=== PATIENT | female | born 1975 | race Caucasian/White ===

== ENCOUNTER 2017-11-25 13:28 | Emergency (ER) | payer MEDICAID, OTHER ==
--- NOTE | 2017-11-25 13:53 | EDPHY ---
H & P Stated Complaint: r foot pain Time Seen by Provider: 11/25/17 13:38 HPI/ROS: Chief Complaint: Foot pain HPI: 32-year-old woman woke this morning with pain in the right midfoot. It hurts to stand or walk. Denies any trauma. Patient states she had similar pain yesterday in her middle toe but this went away. Has not taken any medications. She has been standing and working as every still day. No redness. No fevers or chills. No leg pain or swelling. No cough. ROS: 10 systems were reviewed and were negative except those elements noted in the HPI. PMH: Bipolar disorder Social History: No smoking, no alcohol, no recreational drug use Family History: non-contributory Physical Exam: General: Awake, alert, no acute distress Right foot: Patient has some mild tenderness in the right mid foot on the plantar region. No calcaneal tenderness. No distal metatarsal tenderness. It is not swollen. Is not warm to the touch. Is not red. There is no tenderness no dorsal aspect. There is no deformity. Capillary refills less than 2 sec. She has 2+ DP and PT pulses. Ankle is nontender with full range of motion without pain. Skin: No rash - Personal History LMP (Females 10-55): 1-7 Days Ago Current Tetanus/Diphtheria Vaccine: Yes Current Tetanus Diphtheria and Acellular Pertussis (TDAP): Yes - Medical/Surgical History Hx Asthma: No Hx Chronic Respiratory Disease: No Hx Diabetes: No Hx Cardiac Disease: No Hx Renal Disease: No Hx Cirrhosis: No Hx Alcoholism: No Hx HIV/AIDS: No Hx Splenectomy or Spleen Trauma: No Other PMH: hernia surgeries,bipolar - Social History Smoking Status: Current every day smoker Constitutional: Initial Vital Signs Temperature (C) 36.6 C 11/25/17 13:30 Heart Rate 64 11/25/17 13:30 Respiratory Rate 14 11/25/17 13:30 Blood Pressure 144/85 H 11/25/17 13:30 O2 Sat (%) 97 11/25/17 13:30 O2 Delivery Mode Room Air Allergies/Adverse Reactions: Sulfa (Sulfonamide Antibiotics) Allergy (Verified 08/01/10 12:05) Hives Home Medications: Medication Instructions Recorded lamoTRIgine [Lamictal] 200 mg PO DAILY 08/01/10 Acetaminophen/ASA/Caffeine 1 each PO DAILY 01/24/13 [Excedrin Tablet (OTC)] Abilify 11/25/17 Wellbutrin 100mg (*) 11/25/17 Medical Decision Making - Diagnostics Imaging Results: No obvious fracture Imaging: I viewed and interpreted images myself Departure - Departure Disposition: Home, Routine, Self-Care Clinical Impression: Foot pain Condition: Good Instructions: Metatarsalgia (DC) Additional Instructions: Alternate acetaminophen (1000 mg) with ibuprofen (400 mg) every 4 hours as needed for pain. Follow up with primary care physician in 3-4 days if symptoms are not improving. Referrals: Teresa Simmons MD [[facility] Primary Care Provider] - As per Instructions
[2017-11-25 15:02] VITALS: BP 135/78
== END 2017-11-25 15:01 | disposition home or self-care (01) ==
LOC: CED 13:28
DX: M79.671 Pain in right foot (principal); F17.200 Nicotine dependence, unspecified, uncomplicated
CPT/HCPCS: 73630-PO

== ENCOUNTER 2017-11-30 13:28 | Emergency (ER) | payer MEDICAID ==
--- NOTE | 2017-11-30 13:31 | EDPHY ---
H & P Stated Complaint: burning with urination Time Seen by Provider: 11/30/17 13:30 HPI/ROS: 42-year-old female presents complaining of 3 days of burning with urination, frequent urination with urgency states this feels exactly like prior urinary tract infection she has had. She denies using any [id number] medicines. No fevers no chills no back pain no nausea no vomiting no diarrhea. Patient denies vaginal discharge, vaginal symptoms or vaginal lesions. Review of systems As per HPI General no fever no chills no weakness HEENT no eye pain no eye discharge. No eye redness, no sore throat Respiratory no cough, no shortness of breath Cardiac no chest pain, no peripheral edema GI no abdominal pain, no diarrhea, no constipation, no nausea, no vomiting no flank pain, no hematuria, positive dysuria Musculoskeletal no myalgias, no joint pain Heme no easy bruising, no easy bleeding Endo no polyuria, no polydipsia Skin no rashes, no pruritus Neuro no syncope, no dizziness, no headache Source: Patient Exam Limitations: No limitations - Personal History LMP (Females 10-55): Unknown Current Tetanus Diphtheria and Acellular Pertussis (TDAP): Yes - Medical/Surgical History Hx Asthma: No Hx Chronic Respiratory Disease: No Hx Diabetes: No Hx Cardiac Disease: No Hx Renal Disease: No Hx Cirrhosis: No Hx Alcoholism: No Hx HIV/AIDS: No Hx Splenectomy or Spleen Trauma: No Other PMH: hernia surgeries,bipolar - Family History Significant Family History: No pertinent family hx - Social History Smoking Status: Current every day smoker Alcohol Use: None Drug Use: None - Physical Exam Exam: 42-year-old female Female alert and oriented in no acute distress nontoxic appearance, afebrile Atraumatic normocephalic Neck supple Lungs clear to auscultation bilaterally Heart regular rate and rhythm Abdomen normoactive bowel sounds soft mild suprapubic tenderness no guarding no rebound Back no CVA tenderness Extremities no cyanosis clubbing or edema Skin no rash Constitutional: Initial Vital Signs Temperature (C) 36.9 C 11/30/17 13:32 Heart Rate 77 11/30/17 13:32 Respiratory Rate 16 11/30/17 13:32 Blood Pressure 144/95 H 11/30/17 13:32 O2 Sat (%) 95 11/30/17 13:32 O2 Delivery Mode Room Air Allergies/Adverse Reactions: Sulfa (Sulfonamide Antibiotics) Allergy (Verified 11/30/17 13:37) Hives Home Medications: Medication Instructions Recorded lamoTRIgine [Lamictal] 200 mg PO DAILY 08/01/10 Abilify 11/25/17 Wellbutrin 100mg (*) 11/25/17 Cephalexin 500 mg PO TID #21 tablet 11/30/17 Phenazopyridine HCl [Pyridium] 200 mg PO TID #6 tab 11/30/17 Medical Decision Making ED Course/Re-evaluation: Patient seen and evaluated for dysuria. Urine dip Positive for leuk esterase Urine culture sent Impression Urinary tract infection, possible Will treat empirically Plan Cephalexin Phenazopyridine Await urine culture Follow-up PCP Differential Diagnosis: Differential diagnosis considered but not limited to: Urinary tract infection, vaginal infection, pyelonephritis - Data Points Medications Given: Discontinued Medications Phenazopyridine HCl (Pyridium) 200 mg PO EDNOW ONE Stop: 11/30/17 13:48 Last Admin: 11/30/17 13:53 Dose: 200 mg Point of Care Test Results: Urine Collection Date 11/30/17 Collection Time 13:40 HCG Results Negative Urine Dip Collection Date 11/30/17 Collection Time 13:40 Specific [place] (1.002-1.030) 1.030 PH (5.0-7.5) 5.5 Leukocytes (Negative) Trace Nitrites (Negative) Negative Protein (Negative) 1+ Glucose (Negative) Negative Ketones (Negative) 1+ Urobilnogen (0.2-1.0 EU) 0.2 Blood (Negative) Trace Departure - Departure Disposition: Home, Routine, Self-Care Clinical Impression: Urinary tract infection Condition: Good Instructions: Urinary Tract Infection in Women (ED) Referrals: DR EVERETTE [Other] - As per Instructions Prescriptions: Cephalexin 500 mg PO TID #21 tablet Phenazopyridine HCl [Pyridium] 200 mg PO TID #6 tab
[2017-11-30 13:37] VITALS: BP 144/95
[2017-11-30] MEDS ORDERED: PHENAZOPYRIDINE HCL 200 MG TAB PO ONE (13:47)
== END 2017-11-30 14:06 | disposition home or self-care (01) ==
LOC: CED 13:28
DX: N39.0 Urinary tract infection, site not specified (principal); Z87.440 Personal history of urinary (tract) infections; Z88.2 Allergy status to sulfonamides

== ENCOUNTER 2018-01-14 13:58 | Emergency (ER) | payer MEDICAID ==
[2018-01-14 14:10] VITALS: BP 124/75
--- NOTE | 2018-01-14 14:17 | EDPHY ---
H & P Time Seen by Provider: 01/14/18 14:15 HPI/ROS: Chief complaint. Sore throat HPI. 42-year-old female sore throat for 1 month. Exposure to strep. Off and on fever. She has had fatigue. She feels some neck tightness. No chest pain or shortness of breath. No cough. It seems like previous episodes of strep. ROS 10 systems were reviewed and negative with the exception of the elements mentioned in the history of present illness Past Medical/Surgical History: Bipolar Social History: , daily smoker, no alcohol Smoking Status: Current every day smoker Physical Exam: General Appearance: Alert pleasant well-developed female mild distress vital signs are stable Eyes: Pupils equal and round no pallor or injection. ENT, tympanic membranes are normal. Pharynx mildly injected without exudate. Mucous membranes are moist Respiratory: There are no retractions, lungs are clear to auscultation. Cardiovascular: Regular rate and rhythm. Gastrointestinal: Abdomen is soft and nontender, no masses, bowel sounds normal. Neurological: Awake and alert, sensory and motor exams grossly normal. Skin: Warm and dry, no rashes. Musculoskeletal: Neck is supple nontender. Extremities symmetrical, full range of motion. Psychiatric: Patient is oriented X 3, there is no agitation. Constitutional: Initial Vital Signs Temperature (C) 37.1 C 01/14/18 14:05 Heart Rate 58 L 01/14/18 14:05 Respiratory Rate 14 01/14/18 14:05 Blood Pressure 124/75 H 01/14/18 14:05 O2 Sat (%) 96 01/14/18 14:05 O2 Delivery Mode Room Air Allergies/Adverse Reactions: Sulfa (Sulfonamide Antibiotics) Allergy (Verified 01/14/18 14:03) Hives Home Medications: Medication Instructions Recorded lamoTRIgine [Lamictal] 200 mg PO DAILY 08/01/10 Abilify 11/25/17 Wellbutrin 100mg (*) 11/25/17 Medical Decision Making Procedures: Rapid strep screen is negative ED Course/Re-evaluation: Re-evaluation at 2:40 p.m.. Patient and I discussed laboratory evaluation, treatment plan including criteria for return importance follow-up further evaluation. She expresses understanding and agreement Differential Diagnosis: I considered strep, viral syndrome. - Data Points Point of Care Test Results: Strep Strep Throat Swab Collection 01/14/18 Date Strep Throat Swab Swab 14:15 Collection Time Strep Result Not Detected Departure - Departure Disposition: Home, Routine, Self-Care Clinical Impression: Acute pharyngitis Condition: Good Instructions: Pharyngitis (ED) Additional Instructions: Drink plenty of fluids and stay hydrated Get plenty of rest Tylenol 1000 mg every 4-6 hours, ibuprofen 600 mg every 6 hr as needed for fever Return for worsening symptoms Recheck in 3-4 days if not improving Referrals: NONE *PRIMARY CARE P,. [Primary Care Provider] - As per Instructions
== END 2018-01-14 14:53 | disposition home or self-care (01) ==
LOC: CED 13:58
DX: J02.9 Acute pharyngitis, unspecified (principal)

== ENCOUNTER 2018-06-17 12:26 | Emergency (ER) | payer MEDICAID ==
--- NOTE | 2018-06-17 12:38 | EDPHY ---
H & P - Medical/Surgical History Hx Asthma: No Hx Chronic Respiratory Disease: No Hx Diabetes: No Hx Cardiac Disease: No Hx Renal Disease: No Hx Cirrhosis: No Hx Alcoholism: No Hx HIV/AIDS: No Hx Splenectomy or Spleen Trauma: No Other PMH: hernia surgeries,bipolar - Social History Smoking Status: Current every day smoker Time Seen by Provider: 06/17/18 12:32 HPI/ROS: CHIEF COMPLAINT: Abdominal pain HISTORY OF PRESENT ILLNESS: This is a 43-year-old female who presents with low back and lower abdominal pain. She notices pain that runs from the base of her ribcage all the way down both sides of her back. She describes it as an aching , burning sensation. It is bilateral. She is also describing lower abdominal pain, occasionally sharp, also bilateral. About 2 weeks ago she was aware of vague dysuria but this has worsened in the last 2 days and has been accompanied by the low back and lower abdominal pain. She has been having regular bowel movements, looser than normal, no blood. She has wondered if her pain could be from intra-abdominal gas. No fever. No vomiting. She has a history of dysmenorrhea and states that her menses ended about 6 days ago. She is . She has had 3 surgeries for repair of a ventral hernia, with the last surgery about 4 years ago. She has a history of kidney stone but states that this pain is not like what she experienced with ureterolithiasis. She denies vaginal discharge, vaginal lesions, and history of STD. REVIEW OF SYSTEMS: A ten system review of systems was performed and is negative with the exception of the items mentioned in the HPI. Past medical history: Ureterolithiasis. 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 She has 4 children, all girls. She smokes 1/4 pack of cigarettes daily. She rarely drinks alcohol. General Appearance: Alert. Vital signs reviewed. Blood pressure 122/80. Eyes: Pupils equal and round, no conjunctival injection, no discharge. Anicteric. ENT, Mouth: Mucous membranes are moist, no oropharyngeal erythema or edema. Neck: No lymphadenopathy, supple. Respiratory: Lungs are clear to auscultation; no wheezes, rales, or rhonchi. Cardiovascular: Regular rate and rhythm; no murmur, rub, or gallop. Gastrointestinal: Abdomen is soft and mildly tender in both lower quadrants without guarding,, no masses or organomegaly, bowel sounds normal. Well-healed surgical scar. No palpable abdominal hernia. Skin: Warm and dry, no rashes on exposed skin, normal color. Back: Nontender to palpation over the thoracolumbar spine. Mild bilateral CVA tenderness. No paraspinous muscle spasm appreciated. Extremities: No lower extremity edema, no calf tenderness or swelling. Neurological: Alert and oriented. Moving all four extremities easily and equally. Psychiatric: Normal affect. (Ayana Vail) Constitutional: Initial Vital Signs Temperature (C) 37.0 C 06/17/18 12:33 Heart Rate 62 06/17/18 12:33 Respiratory Rate 16 06/17/18 12:33 Blood Pressure 122/80 H 06/17/18 12:33 O2 Sat (%) 94 06/17/18 12:33 O2 Delivery Mode Room Air Allergies/Adverse Reactions: Sulfa (Sulfonamide Antibiotics) Allergy (Verified 06/17/18 12:32) Hives Home Medications: Medication Instructions Recorded lamoTRIgine [Lamictal] 200 mg PO DAILY 08/01/10 Abilify 11/25/17 Wellbutrin 100mg (*) 11/25/17 Medical Decision Making ED Course/Re-evaluation: Patient's care transferred to [place] at 3:15 p.m.. The patient is currently in ultrasound. Dr. Vail and the patient's plan has been to discharge her if the ultrasound is unremarkable. 3:50 p.m. the patient's ultrasound is reassuring. My examination her abdomen is completely nontender. We discussed options. She would prefer to go home and return tomorrow for symptoms did not improve or if they worsen. I agree that this is reasonable. (Ron Pandey) Urinalysis is positive only for urobilinogen. No signs of urinary tract infection. No hematuria. She has a history of kidney stones, but this pain does not for mind her of her previous kidney stone pain and she does not have the characteristic presentation of a patient with a kidney stone. Urine test is negative, making and ectopic quite unlikely. Patient received Toradol 30 mg IV. She had some relief with this medication. On reexamination of her abdomen she continues with bilateral lower quadrant tenderness, worse on the left than on the right. No guarding or peritoneal signs. I do not suspect obstruction. I reviewed her blood work. CBC is normal , electrolytes are normal with the exception of a slightly low potassium and a mild elevation in her blood glucose. Liver functions are normal. We discussed possible etiologies of this pain. Diverticulitis remains in the differential, as does an ovarian cyst. At this point in time she would like to avoid CT scanning of the abdomen and pelvis. I have ordered an ultrasound of her pelvis to assess her ovaries. If this study is negative she is comfortable returning home to watch and wait. She will follow up with her primary care provider and she understands the danger signs that should prompt her to return. (Ayana Vail) Differential Diagnosis: Abdominal pain including but not limited to ovarian cyst, diverticulitis, ureterolithiasis, pyelonephritis, urinary tract infection, appendicitis, cholecystitis, gastritis, and ectopic . (Ayana Vail) - Data Points Medications Given: Discontinued Medications Ketorolac Tromethamine (Toradol) 30 mg IVP EDNOW ONE Stop: 06/17/18 13:14 Last Admin: 06/17/18 13:39 Dose: 30 mg Point of Care Test Results: CBC CBC Collection Date 06/17/18 CBC Collection Time 13:13 WBC 7.83 RBC 4.30 HGB 13.9 HCT 41.1 PLT 280 Neut # 4.86 Neut 62.1 LYMPH # 2.57 LYMPH 32.8 MCV 95.6 Chemistry 06/17/18 06/17/18 13:32 13:18 POC Sodium 140 mEq/L mEq/L (135-145) POC Potassium 3.2 mEq/L L mEq/L (3.3-5.0) POC Chloride 106.0 mEq/L mEq/L (97-110) POC Total CO2 26 mEq/L mEq/L (22-31) POC BUN 9 mg/dL mg/dL (7-23) POC Creatinine 0.7 mg/dL mg/dL (0.6-1.0) POC Glucose 112 mg/dL H mg/dL (70-100) POC Calcium 9.5 mg/dL mg/dL (8.5-10.4) POC Total Bilirubin 0.6 mg/dL mg/dL (0.1-1.4) POC GGT 16 IU/L IU/L (5-65) POC AST 21 IU/L IU/L (14-46) POC ALT 12 IU/L IU/L (9-52) POC Alk Phosphatase 52 IU/L IU/L (38-126) POC Total Protein 6.3 g/dL g/dL (6.3-8.2) POC Albumin 3.6 g/dL g/dL (3.5-5.0) POC Amylase 36 IU/L IU/L (30-110) Liver Function Tests LFT Collection Date 06/17/18 LFT Collection Time 13:13 Urine Collection Date 06/17/18 Collection Time 11:40 HCG Results Negative Urine Dip Collection Date 06/17/18 Collection Time 12:40 Specific [place] (1.002-1.030) 1.030 PH (5.0-7.5) 6.0 Leukocytes (Negative) Negative Nitrites (Negative) Negative Protein (Negative) 1+ Glucose (Negative) Negative Ketones (Negative) Trace Urobilnogen (0.2-1.0 EU) 1.0 Blood (Negative) Negative Departure - Departure Disposition: Home, Routine, Self-Care Clinical Impression: Abdominal pain Qualifiers: Abdominal location: lower abdomen, unspecified Qualified Code(s): R10.30 - Lower abdominal pain, unspecified Condition: Good Instructions: Abdominal Pain (ED) Additional Instructions: As you know, the etiology of your pain remains unclear. I recommend taking Tylenol and/or ibuprofen to see if this helps. Adult Pain & Fever Control: We recommend Acetaminophen (Tylenol) and Ibuprofen (Motrin,Advil) for pain and fever control. When fever is high or pain severe, both drugs can be used at the same time, but at different intervals. Please note the time differences. Your dose is: Acetaminophen 650mg every 4 to 6 hours Ibuprofen 400mg every 6 hours with food OR Note: do not take Acetaminophen with Hydrocodone (Vicodin, Lortab) or Oycodone (Percocet). These medications also contain Acetaminophen. No more than 3000mg of Acetaminophen should be taken in 24 hours (for an adult). If you're pain persists or if you develop new systems such as more pain with urination, blood in your stool, worsening abdominal pain, fever, vomiting--any new or concerning symptoms--you should be re-evaluated. Referrals: [facility] [Outside] - 1 day, if not improved Stand Alone Forms: Work Excuse
[2018-06-17] MEDS ORDERED: KETOROLAC 30 MG/1 ML SDV IVP ONE (13:13)
[2018-06-17 16:30] VITALS: BP 131/95
== END 2018-06-17 16:15 | disposition home or self-care (01) ==
LOC: CED 12:26
DX: R10.30 Lower abdominal pain, unspecified (principal); M54.5 Low back pain
CPT/HCPCS: 76856-PO; 80048-ER; 80076-ER; 81025-ER; 82150-ER; 85025-QW-ER; 85379-QW-ER; 96374-ER; 99285-ER; J1885